=== PATIENT | female | born 1945 ===

== ENCOUNTER 2023-05-12 13:06 | Outpatient (AMB) | payer MEDICARE, SELFPAY ==
--- NOTE | 2023-05-12 13:12 | MHC.OFFVIS ---
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 She reports this has been going on for about 5 years. 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 she is accompanied by her daughter who helps with history. she thinks it started over 10 years ago and has mildly progressed. The twitches does not affect her vision or activities of daily living. she is not aware of it most of the time and is not embarrassed. she reports eye dryness and blurry vision. she is seeing an tool design drafter in 2 months. No headaches. she has increased falls for past 20 years . she has had 1 concussion. No known family h/o abnormal movement. Mild tremors in her hands. 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 [facility] Medical History (Updated 05/12/23 @ 13:54 by Ruth Campos MD) Facial spasm Blepharospasm Small intestine cancer Carcinoma of both breasts Hyperlipidemia Depression Anxiety Arthritis Surgical History H/O wrist surgery History of intestinal surgery S/P mastectomy Family History Mother Breast cancer Father Heart attack Hyperlipidemia Hypertension Social History Household Members: None Housing: House Alcohol intake: current Comment: 1-2 per month Patient Tobacco Use Status: Former Tobacco user Use of substances other than those prescribed or required for medical reasons: No Physical Exam Vital Signs: Last Vital Signs Pulse 65 05/12/23 13:19 Resp 16 05/12/23 13:19 BP 156/92 H 05/12/23 13:19 Pulse Ox 97 05/12/23 13:19 Oxygen Delivery Method Room Air 05/12/23 13:19 BMI result Body Mass Index 31.6 Const Orientation/consciousness: patient oriented x3 Eyes Pupils: Equal, round and reactive pupils present Neuro Other: Mild lower lid twitching right > Left , some facial twitching , chin tremors General: patient oriented x3, tone normal, moves all extremities and no focal motor deficits Cranial nerves: Yes Facial sensation intact/muscles of mastication intact, Yes Equal, round and reactive pupils present, Yes Bilaterally intact EOM present, Yes Nystagmus not present, Yes Normal facial strength present, Yes Midline tongue present and Yes Symmetric palate elevation present Cognition (Neuro): normal cognition Gait exam (Neuro): Antalgic gait present Motor exam (neuro): 5/5 motor strength present throughout and Normal motor muscle tone present throughout Deep tendon reflexes (DTR's): Right triceps reflex intensity grade: 1+, Left triceps reflex intensity grade: 1+, Rt Biceps (C5, C6): 1+, Left biceps reflex intensity grade: 1+, Right brachioradialis reflex intensity grade: 1+, Left brachioradialis reflex intensity grade: 1+, Right patellar reflex intensity grade: 1+ and Left patellar reflex intensity grade: 1+ Coordination: [id number] test normal Results Reviewed Results Reviewed: MRI Brain- 10/29 Gen atrophy and white matter changes Assessment & Plan Assessment & Plan (1) Blepharospasm: Code(s): G24.5 - Blepharospasm (2) 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 Discussed about various management options especially botox. will hold on treatment now as her symptoms are mild SHe will call if her spasm worsens. Orders: Orders EEG electroencephalogram Today G24.5 - Blepharospasm, G51.39 - Clonic hemifacial spasm, unspecified Coding Level of Care Code New Pt Level 4 (92355) Diagnoses Blepharospasm G24.5 Facial spasm G51.39
[2023-05-12 13:19] VITALS: BP 156/92; PULSE 65; RESP 16; O2SAT 97; BMI 31.6
== END 2023-05-12 16:14 | disposition home or self-care (01) ==
PROVIDERS: PCP Nurse Practitioner Family; Visit Provider Psychiatry & Neurology Neurology
DX: G24.5 Blepharospasm (principal); G51.39 Clonic hemifacial spasm, unspecified
CPT/HCPCS: 99204

== ENCOUNTER → 2023-05-12 13:06 | Outpatient (BNVA) | payer MEDICARE, SELFPAY | PROVIDERS: PCP Nurse Practitioner Family; Visit Provider Psychiatry & Neurology Neurology | DX: G24.5 Blepharospasm (principal); G51.39 Clonic hemifacial spasm, unspecified | CPT/HCPCS: 99202 ==